=== PATIENT | male | born 1990 | race Caucasian/White ===

== ENCOUNTER 2017-02-04 19:19 | Emergency (ER) | payer MEDICAID ==
[2017-02-04] MEDS ORDERED: METOPROLOL TART25 M1 PO (20:11)
[2017-02-04] MEDS ORDERED: NORCO 5-325 TA1 EACH PO (20:32)
[2017-02-04] MEDS ORDERED: KEFLEX500 M4 PO (20:32)
== END 2017-02-04 20:53 ==
LOC: EDMED 19:19
PROC: 3E023BZ Introduction of Anesthetic Agent into Muscle, Percutaneous Approach (ICD-10-PCS; principal; 2017-02-04)
DX: L03.032 Cellulitis of left toe (principal); I10 Essential (primary) hypertension; Z88.6 Allergy status to analgesic agent; Z79.899 Other long term (current) drug therapy; F17.210 Nicotine dependence, cigarettes, uncomplicated